=== PATIENT | male | born 1995 | race Caucasian/White ===

== ENCOUNTER 2020-06-14 13:22 | Emergency (ER) | payer MEDICAID ==
[2020-06-14 14:35] LABS: CHLORIDE,CL 104 mmol/L (98-107); SODIUM,NA 143 mmol/L (136-145)
[2020-06-14 14:40] LABS: ANION GAP 13.9 mmol/L (5-15)
--- NOTE | 2020-06-16 06:37 | EDM.PDOC ---
ED HPI GENERAL MEDICAL PROBLEM - General Chief Complaint: ENT Problem Stated Complaint: dry mouth Time Seen by Provider: 06/14/20 13:30 Source of Information: Reports: Patient History Limitations: Reports: No Limitations - History of Present Illness INITIAL COMMENTS - FREE TEXT/NARRATIVE: Pt. presents to ER with complaints of dry mouth, odd taste in mouth, and occasional blisters in mouth. Pt. states that this has been happening for some time. He states that she was seen in the clinic for this and started on Diflucan presumably for oral candidiasis. He states that this has not helped. He states that he has not been experiencing any fever or chills. No sore throat. Denies any nausea, vomiting, or diarrhea. Pt. is also concerned that he may have oral herpes and is requesting testing for this as well. Pt. denies any sinus congestion. He states that his appetite is normal. No recent changes to his diet. No introduction of new foods, medications, etc. Location: Reports: Face - Related Data Allergies Allergy/AdvReac Type Severity Reaction Status Date / Time No Known Allergies Allergy Verified 06/14/20 13:35 Home Meds: Home Meds . [No Known Home Meds] 06/14/20 [History] Past Medical History - Past Health History Medical/Surgical History: Denies Medical/Surgical History Social & Family History - Tobacco Use Tobacco Use Status *Q: Never Tobacco User ED ROS GENERAL - Review of Systems Review Of Systems: Comprehensive ROS is negative, except as noted in HPI. ED EXAM, GENERAL - Physical Exam Exam: See Below Exam Limited By: No Limitations General Appearance: Alert, WD/WN, No Apparent Distress Throat/Mouth: Normal Inspection, Normal Lips, Normal Teeth, Normal Gums, Normal Oropharynx, Normal Voice, No Airway Compromise Respiratory/Chest: No Respiratory Distress, Lungs Clear, Normal Breath Sounds, No Accessory Muscle Use, Chest Non-Tender Cardiovascular: Normal Peripheral Pulses, Regular Rate, Rhythm, No Edema, No JVD GI/Abdominal: Soft, Non-Tender, No Distention, No Mass Skin Exam: Warm, Dry, Intact, Normal Color, No Rash Course - Vital Signs Last Recorded V/S: Last Vital Signs Temp 37.1 C 06/14/20 13:30 Pulse 76 06/14/20 13:30 Resp 16 06/14/20 13:30 BP 128/88 06/14/20 13:30 Pulse Ox 97 05/01/21 13:30 - Orders/Labs/Meds Labs: Laboratory Tests 06/14/20 06/14/20 Range/Units 14:07 14:07 WBC 4.6 (4.0-10.0) x10^3/uL RBC 5.38 (4.5-6.0) x10^6/uL Hgb 16.0 (14.0-18.0) g/dL Hct 46.4 (40.0-52.0) % MCV 86.2 (78.0-93.0) fL MCH 29.7 (26.0-32.0) pg MCHC 34.5 (32.0-36.0) g/dL RDW Coeff of Rosie 12.0 (10.0-15.0) % Plt Count 279 (130-400) x10^3/uL Neut % (Auto) 52.9 (50.0-80.0) % Lymph % (Auto) 37.3 (25.0-50.0) % [place] % (Auto) 8.7 (2.0-11.0) % Eos % (Auto) 0.9 (0.0-4.0) % Baso % (Auto) 0.2 (0.2-1.2) % Sodium 143 (136-145) mmol/L Potassium 3.9 (3.5-5.1) mmol/L Chloride 104 (98-107) mmol/L Carbon Dioxide 29 (21-32) mmol/L Anion Gap 13.9 (5-15) mmol/L BUN 16 (7-18) mg/dL Creatinine 1.0 (0.70-1.30) mg/dL Est Cr Clr Drug Dosing 134.97 mL/min Estimated GFR (MDRD) > 60 Glucose 78 (70-99) mg/dL Calcium 9.2 (8.5-10.1) mg/dL Corrected Calcium 9.12 (8.5-10.1) mg/dL Total Bilirubin 0.6 (0.2-1.0) mg/dL AST 21 (15-37) U/L ALT 26 (16-63) U/L Alkaline Phosphatase 89 (46-116) U/L Total Protein 7.9 (6.4-8.2) g/dL Albumin 4.1 (3.4-5.0) g/dL Globulin 3.8 Albumin/Globulin Ratio 1.08 Departure - Departure Time of Disposition: 15:00 Disposition: Home, Self-Care 01 Clinical Impression: Stomatitis and mucositis with change of taste Clinical Impression: (Ruled Out): Stomatitis - Discharge Information Instructions: Stomatitis, [id number] Referrals: PCP,None [Primary Care Provider] - Forms: ED Department Discharge Additional Instructions: I will let you know the results if the viral cultures and B12 tests. The rest of your labs were all within normal limits. Establish care at one of the clinics locally for follow-up. [phone] Sepsis Event Note (ED) - Evaluation Sepsis Screening Result: No Definite Risk - Problem List Review Problem List Initiated/Reviewed/Updated: Yes - Assessment/Plan Plan: I will let you know the results if the viral cultures and B12 tests. The rest of your labs were all within normal limits. Establish care at one of the clinics locally for follow-up. [phone] [phone]
== END 2020-06-14 15:00 | disposition home or self-care (01) ==
LOC: VM.ED 13:22
DX: K12.1 Other forms of stomatitis (principal); K12.30 Oral mucositis (ulcerative), unspecified
CPT/HCPCS: 36415; 80053; 82607; 85025; 87252; 99283